=== PATIENT | male | born 1960 | race Caucasian/White ===

== ENCOUNTER 2025-06-18 14:10 | Outpatient (AMB) | payer MEDICARE, SELFPAY ==
--- NOTE | 2025-06-18 14:41 | MHC.PC.OV ---
Vital Signs 06/18/25 14:47 06/18/25 14:53 Height 5 ft 10 in Weight 168 lb 6 oz BMI 24.2 BP 146/86 H 140/84 H Blood Pressure Location Rt brachial Rt radial Position Sitting Sitting Respiration 12 Pulse 78 Pulse Source Pulse Oximeter Temp 98.1 F Temp Source Oral Pulse Oximetry (%) 99 Oxygen Delivery Method Room Air Intake Visit Reasons: SAP ARCHITECT CPE/Cardio issues Intake Note: New patient visit [facility] General Manager Required: No Allergies No Known Allergies Allergy (Verified 06/18/25 14:41) Medication List - Last Reconciled 06/18/25 by Romy Vásquez PA-C fexofenadine-pseudoephedrine 60-120 mg ER (Divya-D 12 Hour) 1 tab PO Q12H PRN simvastatin 20 mg PO DAILY Tobacco use date assessed: 06/18/25 Fall risk assessment: No Falls in past year Last assessed Fall Risk: 06/18/25 Dental Screening Dental Screen Date: 06/18/25 Did you have a dental visit in the last 12 months?: No Did you have a dental problem in the last 6 months where you did not have access to dental care?: No Was dental information given to patient?: Patient declined HPI SAP ARCHITECT CPE/Cardio issues HPI Details Pt is a 64 y/o male who presents today to establish care. He has not seen anyone since 2019. He has hx of HLD. CV: has not been on simvastatin 20 mg in the last few years or so. He states that he had a stash of some leftover pills so for the last couple weeks has started taking simvastatin 20 mg again. He states that he started taking this because he has been experiencing chest pain, shortness on breath, racing heartbeat and just feeling unwell in his chest. He states that his symptoms started in February and he was getting intermittent chest pain that changes in quality. He states that it can feel like a tightness, dull, sharp, vibration etc.. He does often times get associated shortness on breath and dizziness with it. He has a few times experience a racing heartbeat that sometimes has associated chest tightness. He is worried that he could have AFib. A few times he has had a racing heartbeat that he has woken up with or chest pain that is woken him up from sleep. Sometimes it is exertional and sometimes it is while he is just sitting there. He states what he really noticed as concerning is walking up a couple steps on a ladder causes him to experience shortness on breath and dizziness with chest pain. He has had to stop going up a flight of stairs numerous times. He states that this is very unlike him. He did actually have an episode of syncope where he had these symptoms and then fell and hit his bathroom floor. He did not seek emergent medical care. He states that he does have a family history of MIs. He states most of his family members have from massive heart attacks. He states that he has tried to treat this with aspirin which he thinks sometimes makes the pain better but it takes a long time. He has been taking a daily aspirin. Blood pressure is elevated today in the office and he states it is similar to how it was a few years ago. Derm: right shoulder lesion present for years. states it grows, scabs over, and does not go away. wonders if it could be skin cancer. Colonoscopy: 2017, had polpys. overdue. 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 1. Little interest or pleasure in doing things: several days 2. Feeling down, depressed, or hopeless: not at all 3. Trouble falling or staying asleep, or sleeping too much: not at all 4. Feeling tired or having little energy: several days 5. Poor appetite or overeating: not at all 6. Feeling bad about yourself - or that you are a failure or have let yourself or your family down: not at all 7. Trouble concentrating on things, such as reading the newspaper or watching television: several days 8. Moving or speaking so slowly that other people could have noticed. Or the opposite - being so fidgety or restless that you have been moving around a lot more than usual: not at all 9. Thoughts that you would be better off or of hurting yourself in some way: not at all Total score: 3 Depression Screening Interpretation: Negative Depression Screening Done: Yes 59339 - PHQ-9 Billing: Yes Source: Developed by Drs. Sánchez Jules, Sherlyn Rhodes, Romaine Hu and colleagues, with an educational britt from [employer]. Thrive Questionnaire Date Thrive assessed: 06/16/25 I am a: Patient What is your living situation today?: I have a steady place to live Within the past 12 months, did the food you bought not last and you didn't have the money to get more?: Never true Within the past 12 months, did you worry whether your food would run out before you got money to buy more?: Never true Do you have trouble paying for medicines?: No Do you have trouble getting transportation to medical appointments?: No Do you have trouble paying your heating and electricity bill?: No Do you have trouble taking care of your child, family member or friend?: No Do you have trouble with day-to-day activities such as bathing, preparing meals, shopping, managing finances, etc.?: No Are you currently unemployed and looking for a job?: No Are you interested in more education?: No Please select the resources that you would like help with: None Currently or been in a relationship where the following occur: No concerns reported THRIVE Score: 0 AUDIT C Alcohol Use Questionnaire (AUDIT-C) 1. How often do you have a drink containing alcohol?: 4 or more times a week 2. How many drinks containing alcohol do you have on a typical day when you are drinking?: 3 or 4 3. How often do you have six or more drinks on one occasion?: Monthly Total Score: 7 PAYAM-7 AMB Questionnaire PAYAM-7 Feeling nervous, anxious, or on edge: 1 = Several days Not being able to stop or control worryin = Several days Worrying too much about different things: 1 = Several days Trouble relaxin = Several days Being so restless that it is hard to sit still: 0 = Not at all Becoming easily annoyed or irritable: 0 = Not at all Feeling afraid as if something awful might happen: 1 = Several days Total PAYAM-7 score (0-4 normal; 5-9 mild; 10-14 moderate; 15-21 severe): 5 Source: Developed by Drs. Sánchez LSherlyn Diaz Kurt Kroenke and colleagues, with an educational britt from [employer]. PAYAM-7 Assessment Billing PAYAM-7 Assessment Tool: PAYAM-7 Assessment 88045 Physical exam (Primary Care) Vital Signs: Last Vital Signs Temp 98.1 F 06/18/25 14:47 Pulse 78 06/18/25 14:47 Resp 12 06/18/25 14:47 BP 146/86 H 06/18/25 14:47 Pulse Ox 99 06/18/25 14:47 Oxygen Delivery Method Room Air 06/18/25 14:47 BMI result Body Mass Index 24.2 Tobacco/Smoking Status: Tobacco use Status Tobacco use date assessed 06/18/25 06/18/25 14:50 e-Cigarette/Vaping Use Never Used 06/18/25 14:50 PHQ-9: PHQ-9 Score PHQ-9: Total score 3 06/18/25 14:43 Depression Screening Interpretation: Negative Thrive Assessment: Date of Thrive Assessment Date Thrive assessed 06/16/25 06/18/25 14:43 Currently or been in a relationship where the following occur: No concerns reported Const Orientation/consciousness: patient oriented x3 HENMT Ears: hearing grossly normal bilaterally Neck Thyroid: Thyroid normal Lymphatic: no lymphadenopathy noted Resp Auscultation: clear to auscultation bilaterally Cardio Rate: regular rate Rhythm: regular rhythm Heart sounds: S1 normal heart sound present and S2 normal heart sound present GI Inspection: Yes normal to inspection Palpation (GI): Soft to palpation and Other GI palpation findings present (nontender, no cva tenderness) Auscultation: normoactive bowel sounds Rectal Exam - Male: Yes deferred Skin General skin exam: no rashes or lesions noted Neuro General: patient oriented x3, gait normal and no focal motor deficits Office Procedures EKG Details: EKG today in office is normal sinus rhythm at a rate of 73 beats per minute with nonspecific STT wave abnormalities. No prior study to compare. EKG interpreted myself and Dr. Wong. [id number], Complete Coding Level of Care Code New Pt Level 5 (46739) Complex EM visit Add On G2211 Diagnoses Colon polyps K63.5 Skin lesion of right arm L98.9 Chest pain R07.9 Racing heart beat R00.0 Elevated blood pressure reading in office without diagnosis of hypertension R03.0 Syncope R55 Fam hx-ischem heart disease Z82.49 CPT Codes EKG - CPT: 65297-Nsefrpsuqkyvhnohu, Complete ([id number]) Additional Codes PHQ-9 - 22057 - PHQ-9 Billing: Yes ([id number]) PAYAM-7 Assessment Billing - PAYAM-7 Assessment Tool: PAYAM-7 Assessment [id number] ([id number]) Assessment & Plan Assessment & Plan (1) Colon polyps: Code(s): K63.5 - Polyp of colon Category: Medical Plan: referral back to Dr. Newman. (2) Skin lesion of right arm: Code(s): L98.9 - Disorder of the skin and subcutaneous tissue, unspecified Category: Medical Plan: referral to derm. Lazar. (3) Chest pain: Code(s): R07.9 - Chest pain, unspecified Category: Medical Plan: EKG today in the office Chest x-ray ordered Stress test ordered Echo ordered Holter ordered Labs ordered Referral to Cardiology. We will start metoprolol. Discussed risks and benefits and adverse effects of this medication. I have reordered the simvastatin.-lipids and LFTs ordered although suspect that the lipids are not well-controlled as he has only been on the simvastatin for a couple weeks with a very out dated prescription Advised to continue with a daily baby aspirin Warning signs of chest pain that would require emergent medical treatment were discussed (4) Racing heart beat: Code(s): R00.0 - Tachycardia, unspecified Category: Medical Plan: As above (5) Elevated blood pressure reading in office without diagnosis of hypertension: Code(s): R03.0 - Elevated blood-pressure reading, without diagnosis of hypertension Category: Medical Plan: Metoprolol ordered (6) Syncope: Code(s): R55 - Syncope and collapse Category: Medical Plan: As above. Carotid ultrasound also ordered (7) Fam hx-ischem heart disease: Code(s): Z82.49 - Family history of ischemic heart disease and other diseases of the circulatory system Category: Medical Plan: As above Plan 75 minutes spent today in direct patient care, chart review, coordination of care, note dictation. Orders: Orders Complete Blood Count Auto Diff Today R00.0 - Tachycardia, unspecified, R03.0 - Elevated blood-pressure reading, without diagnosis of hypertension, R07.9 - Chest pain, unspecified, R55 - Syncope and collapse TSH reflex Free T4 Today R00.0 - Tachycardia, unspecified, R03.0 - Elevated blood-pressure reading, without diagnosis of hypertension, R07.9 - Chest pain, unspecified, R55 - Syncope and collapse Prostate Specific Antigen Scr Today R00.0 - Tachycardia, unspecified, R03.0 - Elevated blood-pressure reading, without diagnosis of hypertension, R07.9 - Chest pain, unspecified, R55 - Syncope and collapse, Z01.89 - Encounter for other specified special examinations CA echo transthoracic complete Today R00.0 - Tachycardia, unspecified, R03.0 - Elevated blood-pressure reading, without diagnosis of hypertension, R07.9 - Chest pain, unspecified, R55 - Syncope and collapse US carotid duplex BI Today R00.0 - Tachycardia, unspecified, R00.2 - Palpitations, R03.0 - Elevated blood-pressure reading, without diagnosis of hypertension, R07.9 - Chest pain, unspecified, R55 - Syncope and collapse AMB EKG-In Office Today R00.0 - Tachycardia, unspecified, R03.0 - Elevated blood-pressure reading, without diagnosis of hypertension, R07.9 - Chest pain, unspecified Comprehensive [place]. Panel Fast Today R00.0 - Tachycardia, unspecified, R03.0 - Elevated blood-pressure reading, without diagnosis of hypertension, R07.9 - Chest pain, unspecified, R55 - Syncope and collapse Hemoglobin A1c Today R00.0 - Tachycardia, unspecified, R03.0 - Elevated blood-pressure reading, without diagnosis of hypertension, R07.9 - Chest pain, unspecified, R55 - Syncope and collapse, R73.01 - Impaired fasting glucose Lipid Panel Today R00.0 - Tachycardia, unspecified, R03.0 - Elevated blood-pressure reading, without diagnosis of hypertension, R07.9 - Chest pain, unspecified, R55 - Syncope and collapse Microalbumin, Random (w Creat) Today R00.0 - Tachycardia, unspecified, R03.0 - Elevated blood-pressure reading, without diagnosis of hypertension, R07.9 - Chest pain, unspecified, R55 - Syncope and collapse UA CC w/rflx Micro + Cult Today R00.0 - Tachycardia, unspecified, R03.0 - Elevated blood-pressure reading, without diagnosis of hypertension, R07.9 - Chest pain, unspecified, R30.0 - Dysuria, R55 - Syncope and collapse CA stress test Today R00.0 - Tachycardia, unspecified, R03.0 - Elevated blood-pressure reading, without diagnosis of hypertension, R07.9 - Chest pain, unspecified, R55 - Syncope and collapse ECG holter monitor 24 hour Today R00.0 - Tachycardia, unspecified, R03.0 - Elevated blood-pressure reading, without diagnosis of hypertension, R07.9 - Chest pain, unspecified, R55 - Syncope and collapse XR chest 2V Today R00.0 - Tachycardia, unspecified, R03.0 - Elevated blood-pressure reading, without diagnosis of hypertension, R07.9 - Chest pain, unspecified, R55 - Syncope and collapse Referrals Gastroenterology Referral K63.5 - Polyp of colon, Z12.11 - Encounter for screening for malignant neoplasm of colon Cardiology Referral R00.0 - Tachycardia, unspecified, R03.0 - Elevated blood-pressure reading, without diagnosis of hypertension, R07.9 - Chest pain, unspecified, Z82.49 - Family history of ischemic heart disease and other diseases of the circulatory system Dermatology Referral L98.9 - Disorder of the skin and subcutaneous tissue, unspecified, Z12.83 - Encounter for screening for malignant neoplasm of skin Medications: New metoprolol succinate ER 25 mg PO DAILY 90 tabs 0RF simvastatin 20 mg PO DAILY 90 tabs 3RF
[2025-06-18 14:47] VITALS: BP 146/86; PULSE 78; RESP 12; TEMP 36.7; O2SAT 99; BMI 24.2
[2025-06-18 14:53] VITALS: BP 140/84
== END 2025-06-18 15:44 | disposition home or self-care (01) ==
LOC: HO.HMCFM 14:11
PROVIDERS: PCP Physician Assistant; Visit Provider Physician Assistant
DX: R07.9 Chest pain, unspecified (principal); K63.5 Polyp of colon; L98.9 Disorder of the skin and subcutaneous tissue, unspecified; R00.0 Tachycardia, unspecified; R03.0 Elevated blood-pressure reading, without diagnosis of hypertension; R55 Syncope and collapse; Z82.49 Family history of ischemic heart disease and other diseases of the circulatory system

== ENCOUNTER → 2025-06-18 14:10 | Outpatient (BNVA) | payer MEDICARE, SELFPAY | PROVIDERS: PCP Physician Assistant; Visit Provider Physician Assistant | DX: R03.0 Elevated blood-pressure reading, without diagnosis of hypertension (principal); L98.9 Disorder of the skin and subcutaneous tissue, unspecified; R07.9 Chest pain, unspecified; R00.0 Tachycardia, unspecified; R55 Syncope and collapse; Z82.49 Family history of ischemic heart disease and other diseases of the circulatory system; Z86.0100 Personal history of colon polyps, unspecified | CPT/HCPCS: 93005; 96127; 99202 ==

== ENCOUNTER 2025-06-19 07:34 | Outpatient (REF) | payer MEDICARE, SELFPAY ==
[2025-06-19 11:02] LABS: MANUAL DIFF FLAG NO
[2025-06-19 11:04] LABS: Hematocrit 44.4 % (42.0-52.0); Hemoglobin 15.4 g/dl (14.0-18.0); Imm Gran Abs Auto 0.02 X10*3/uL (0.00-0.03); Imm Gran Pct Auto 0.3 % (0.0-0.4); Lymphocytes Absolute Auto 1.8 X10*3/uL (1.2-4.9); Mean Corpuscular HGB Conc 34.7 g/dl (31.0-36.0); Mean Corpuscular Hemoglobin 31.4 pg (27.0-33.0); Mean Corpuscular Volume 90.6 fL (80.0-98.0); NRBC Abs Auto 0.000 X10*3/uL (0.0-0.012); NRBC Pct Auto 0.0 /100WBC (0.0-0.2); Platelet Count 205 X10*3/uL (160-400); Red Blood Count 4.90 X10*6/uL (4.60-5.80); White Blood Count 6.3 X10*3/uL (4.8-10.8)
[2025-06-19 11:11] LABS: Appearance Urine Clear; Glucose Urine UA Negative (Negative); PH 7.0 (5.0-9.0); Specific Gravity - Urine 1.020 (1.005-1.025); UMIC TRIGGER UACC YES
[2025-06-19 11:48] LABS: Alanine Aminotransferase 45 U/L (0-40); Albumin Level 4.2 g/dL (3.5-5.0); Alkaline Phosphatase 72 U/L (39-117); Anion Gap 12 (12-20); Aspartate Amino Transferase 42 U/L (5-37); Blood Urea Nitrogen 13 mg/dL (9-16); Calcium 9.6 mg/dL (8.4-10.2); Carbon Dioxide 28 mmol/L (22-29); Chloride 105 mmol/L (96-108); Cholesterol 157 mg/dL (<200); Estimated Glomerular Filt Rate > 60; HDL Cholesterol 50 mg/dL (>40); Potassium 4.9 mmol/L (3.3-5.1); Sodium 140 mmol/L (135-145); Total Protein 6.5 g/dL (6.5-8.0); Triglycerides 67 mg/dL (<150)
[2025-06-19 11:54] LABS: Hemoglobin A1C 158.9785 umol/L; Total Hemoglobin (HGBA1C) 4679.0597 umol/L
[2025-06-19 11:58] LABS: Microalbum/Creatinine Ratio Ur 3.5 ug/mg cr (<30)
== END 2025-06-19 07:35 | disposition home or self-care (01) ==
LOC: HO.WFDLDS 07:34
PROVIDERS: Visit Provider Physician Assistant
DX: Z12.5 Encounter for screening for malignant neoplasm of prostate (principal); Z01.89 Encounter for other specified special examinations; R03.0 Elevated blood-pressure reading, without diagnosis of hypertension; R07.9 Chest pain, unspecified; R00.0 Tachycardia, unspecified; R55 Syncope and collapse; R73.01 Impaired fasting glucose
CPT/HCPCS: 36415; 80053; 80061; 81001; 82043; 82570; 83036; 84153; 84443; 85025

== ENCOUNTER 2025-07-09 15:15 | Outpatient (AMB) | payer MEDICARE, SELFPAY ==
--- NOTE | 2025-07-09 15:20 | MHC.PC.OV ---
Vital Signs 07/09/25 15:23 Height 5 ft 10 in Weight 165 lb 2 oz BMI 23.7 BP 138/82 Blood Pressure Location Lt brachial Position Sitting Respiration 14 Pulse 77 Pulse Source Pulse Oximeter Temp 98.3 F Temp Source Oral Pulse Oximetry (%) 98 Oxygen Delivery Method Room Air Intake Visit Reasons: bp and lab check Intake Note: Follow up. Tested positive yesterday for covid. Sxs started Sunday. fatigue, body aches, cough, fever, dizzy. Feeling better today Pathology Technician Required: No Allergies No Known Allergies Allergy (Verified 07/09/25 15:22) Medication List - Last Reconciled 07/09/25 by Romy Vásquez PA-C fexofenadine-pseudoephedrine 60-120 mg ER (Divya-D 12 Hour) 1 tab PO Q12H PRN metoprolol succinate ER 25 mg PO DAILY simvastatin 20 mg PO DAILY Tobacco use date assessed: 07/09/25 Fall risk assessment: No Falls in past year Last assessed Fall Risk: 07/09/25 Dental Screening Dental Screen Date: 06/18/25 HPI bp and lab check HPI Details Pt is a 64 y/o male who presents today for a follow up. He has not seen anyone since 2019. He has hx of HLD. He started to feel sick Sunday night. He started getting some dizziness, sore throat, cough, body aches, fever and chills. His sx are gradually improving. He states today he is better. He states that his COVID tests came back positive yesterday. He denies any wheezing or shortness on breath. CV: bp today is 138/82. He is booked for stress test, echo and holter later this month. He has started aspirin but not metoprolol. He is taking simvastatin. He states that the pharmacy did not yet send him the metoprolol. He states that over this last week he has not notice as much chest pain. Derm: Booked with Dermatology in a couple of months. Colonoscopy: 2017, had polrodrigo. overdue. booked 09.03.25. 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 Current occupational exposures/hazards: No Cognitive needs: No Hearing needs: No Vision needs: Yes (glasses.) Questionnaire Thrive Questionnaire Date Thrive assessed: 06/16/25 I am a: Patient What is your living situation today?: I have a steady place to live Within the past 12 months, did the food you bought not last and you didn't have the money to get more?: Never true Within the past 12 months, did you worry whether your food would run out before you got money to buy more?: Never true Do you have trouble paying for medicines?: No Do you have trouble getting transportation to medical appointments?: No Do you have trouble paying your heating and electricity bill?: No Do you have trouble taking care of your child, family member or friend?: No Do you have trouble with day-to-day activities such as bathing, preparing meals, shopping, managing finances, etc.?: No Are you currently unemployed and looking for a job?: No Are you interested in more education?: No Please select the resources that you would like help with: None Currently or been in a relationship where the following occur: No concerns reported THRIVE Score: 0 AUDIT C Alcohol Use Questionnaire (AUDIT-C) 1. How often do you have a drink containing alcohol?: 4 or more times a week 2. How many drinks containing alcohol do you have on a typical day when you are drinking?: 1 or 2 3. How often do you have six or more drinks on one occasion?: Never Total Score: 4 Physical exam (Primary Care) Vital Signs: Last Vital Signs Temp 98.3 F 07/09/25 15:23 Pulse 77 07/09/25 15:23 Resp 14 07/09/25 15:23 BP 138/82 07/09/25 15:23 Pulse Ox 98 07/09/25 15:23 Oxygen Delivery Method Room Air 07/09/25 15:23 BMI result Body Mass Index 23.7 Tobacco/Smoking Status: Tobacco use Status Tobacco use date assessed 07/09/25 07/09/25 15:28 Patient Tobacco Use Status Never used Tobacco 07/09/25 15:28 e-Cigarette/Vaping Use Never Used 07/09/25 15:28 Thrive Assessment: Date of Thrive Assessment Date Thrive assessed 06/16/25 07/09/25 15:28 Currently or been in a relationship where the following occur: No concerns reported Const Orientation/consciousness: patient oriented x3 HENMT Ears: hearing grossly normal bilaterally Neck Thyroid: Thyroid normal Lymphatic: no lymphadenopathy noted Resp Auscultation: clear to auscultation bilaterally Cardio Rate: regular rate Rhythm: regular rhythm Heart sounds: S1 normal heart sound present and S2 normal heart sound present GI Inspection: Yes normal to inspection Palpation (GI): Soft to palpation and Other GI palpation findings present (nontender, no cva tenderness) Auscultation: normoactive bowel sounds Rectal Exam - Male: Yes deferred Skin General skin exam: no rashes or lesions noted Neuro General: patient oriented x3, gait normal and no focal motor deficits Coding Level of Care Code Est Pt Level 4 (68165) Complex EM visit Add On G2211 Diagnoses Elevated blood pressure reading in office without diagnosis of hypertension R03.0 Elevated LFTs R79.89 COVID U07.1 Assessment & Plan Assessment & Plan (1) Elevated blood pressure reading in office without diagnosis of hypertension: Code(s): R03.0 - Elevated blood-pressure reading, without diagnosis of hypertension Category: Medical Plan: Start metoprolol. Return for follow up in a couple of months. We will follow up pending cardiac testing. He will follow up sooner if anything worsens or changes or go to the ED (2) Elevated LFTs: Code(s): R79.89 - Other specified abnormal findings of blood chemistry Category: Medical Plan: Last labs showed elevated LFTs. He will recheck these. (3) COVID: Code(s): U07.1 - COVID-19 Plan: Symptoms are improving/resolved. Continue monitoring. Medications: Refilled metoprolol succinate ER 25 mg PO DAILY 90 tabs 3RF metoprolol succinate ER 25 mg PO DAILY 90 tabs 0RF
[2025-07-09 15:23] VITALS: BP 138/82; PULSE 77; RESP 14; TEMP 36.8; O2SAT 98; BMI 23.7
== END 2025-07-09 15:45 | disposition home or self-care (01) ==
LOC: HO.HMCFM 15:16
PROVIDERS: PCP Physician Assistant; Visit Provider Physician Assistant
DX: R03.0 Elevated blood-pressure reading, without diagnosis of hypertension (principal); R79.89 Other specified abnormal findings of blood chemistry; U07.1 COVID-19

== ENCOUNTER → 2025-07-09 15:15 | Outpatient (BNVA) | payer MEDICARE, SELFPAY | PROVIDERS: PCP Physician Assistant; Visit Provider Physician Assistant | DX: R03.0 Elevated blood-pressure reading, without diagnosis of hypertension (principal); R79.89 Other specified abnormal findings of blood chemistry; U07.1 COVID-19; Z79.82 Long term (current) use of aspirin; Z79.899 Other long term (current) drug therapy | CPT/HCPCS: 99212 ==

== ENCOUNTER → 2025-07-27 08:52 | Outpatient (REF) | payer MEDICARE, SELFPAY ==
--- NOTE | 2025-07-27 08:54 | CA_ITS ---
Transthoracic Echocardiogram Patient (Last, First, Middle): Sánchez Zaidi Jr, Gender: M Date of : 1960 Age: 64 Procedure Date: 07/27/2025 Procedure Type: Transthoracic Echocardiogram Location: OP Height: 177. cm Weight: 79.38 kg BSA: 1.97 m2 Heart Rate: 76 bpm BP: 138 / 65 mmHg Program Manufacturing Leader: LUKE Referring MD: Romy Vásquez PA-C Symptoms: R03.0 - Elevated blood-pressure reading, without diagnosis of hypertension Study Quality: Adequate ECG Rhythm: Sinus Conclusions: - The left ventricular systolic function is normal. The calculated ejection fraction is 67% by biplane method. - No obvious valvular pathology seen on this study. - Top normal ascending aortic size at 3.7 cm. Findings Left Ventricle Normal left ventricular cavity size. There is mildly increased left ventricular wall thickness. The left ventricular systolic function is normal. The calculated ejection fraction is 67% by biplane method. There is no evidence of regional wall motion abnormalities. Diastolic function is normal for age. Mild focal hypertrophy of the basal septum. Right Ventricle Mildly increased right ventricular cavity size. There is normal right ventricular systolic function. Atria Both atria are normal in size. Aortic Valve There is a normal trileaflet aortic valve. There is mild calcification of the aortic valve. There is no aortic valve stenosis. There is no aortic valve regurgitation. Mitral Valve There is mild mitral annular calcification. There is no mitral valve regurgitation. There is no mitral valve stenosis. Pulmonic Valve The pulmonic valve is likely normal. Tricuspid Valve There is trace tricuspid valve regurgitation. There is no evidence of pulmonary hypertension. Great Vessels The aortic arch is normal in size. Top normal ascending aortic size at 3.7 cm. Venous The inferior vena cava is mildly dilated and collapses greater than 50% with inspiration. Pericardium/Pleural There is no evidence of pericardial effusion. Prior Study Comparison No prior study available for comparison. Recommendations, Care & Conclusions No obvious valvular pathology seen on this study. Measurements 2D Linear Measurements IVSd: 1.13 0.6-0.9/0.6-1.0 cm LVIDd: 3.55 3.9-5.3/4.2-5.9 cm LVIDd Index: 1.80 2.4-3.2/2.2-3.1 cm/m2 LVIDs: 1.90 2.0-3.6 cm LVPWd: 1.10 0.7-1.1 cm LA Diam: 3.10 2.7-3.8/3.0-4.0 cm LAIDs Index: 1.57 1.5-2.3 cm/m2 LV Mass: 154.30 67-162/88-224 g LV Mass Index: 78.32 43-95/49-115 g/m2 LVOT Diam: 2.20 3.0+(-)1.3 cm 2D Systolic Function EF 4C: 62.90 >55% EF 2C: 70.30 >55% EF BiP: 67.40 >55% Mitral Valve MV Pk E: 0.91 MV PK A: 0.84 MV Decel Time: 226.00 E/A: 1.10 E'Lateral: 9.57 E'Medial: 7.83 E/E' Med: 11.70 E/E' Lat: 9.50 PHT: 66.00 MVA PHT: 3.33 Decel Warren: 4.05 Aortic Valve AoV Pk Artemio: 1.07 AoV Mn Artemio: 0.81 AoV VTI: 0.25 AoV Pk Grad: 5.00 Aov Mn Grad: 3.00 EUGENIO Cont.VTI: 3.75 LVOT LVOT Pk Artemio: 1.00 LVOT Mn Artemio: 0.77 LVOT VTI: 0.25 LVOT Pk Grad: 4.00 LVOT Mn Grad: 3.00 LVOT Diam: 2.20 LVOT Area: 3.80 Diastolic Function MV Pk E: 0.91 MV Pk A: 0.84 E/A: 1.10 E'Medial: 7.83 E/E' Med: 11.70 E' Laterial: 9.57 E/E' Lat: 9.50 Right Ventricle TAPSE (mm): 27.80 TVS' Artemio: 14.80 Tricuspid Valve TR Pk Artemio: 1.82 TR Pk Grad: 13.00 RA Press: 8.00 RVSP: 21.00 Great Vessels Aorta Sinus of Valsalva: 3.60 2.0-3.5 cm Ao Asc: 3.70 2.1-3.4 cm Ao Arch: 3.20 Pulmonary Veins Pulm Vein S/D 1.70 Pulmonary Valve PV Pk Artemio: 1.05 Peak PV Grad: 4.00 Updated in Other Vendor System with Status of Final Shaji Arevalo MD electronically signed on 07/27/2025 12:47:51 PM with status of Final
--- NOTE | 2025-07-27 08:54 | HM_ITS ---
Conclusion: 1. Baseline was normal sinus rhythm with average heart of 77 beats per minute 2. Occasional PACs noted with total burden of 0.72% without significant tachyarrhythmias 3. No significant pauses noted 4. Patient marked the counter 1 time correlating with sinus rhythm MTDD
--- NOTE | 2025-07-27 08:54 | CA_ITS ---
Acquisition Time: 2025-07-27 10:03:14 Total Exercise Time: 00:04:56 Test Indications: cp Medications: see h&p Protocol: LAYA Max HR: 153 BPM 99% of Pred: 154 BPM Max BP: 194/70 mmHG Max Work Load: 6.9 METS Exercise stress test with exercise 4 min 56 sec of Laya protocol, achieving 97% MPHR, with mild shortness of breath, no chest discomfort, report of heart skipping , with normotensive reponse to exercise, with EKG changes meeting criteria for ischemia, 1.5-2mm horiozontal to slightly upsloping ST depression inferolateral leads, ST elevation aVR with gradual improvement in recovery. Test reviewed with Dr Arevalo. Exercise nuclear stress test ordered for further evaluation. Referred By: Romy Vásquez Electronically Signed By: GABRIEL CEDILLO
--- OUTSIDE RECORDS SUMMARY | 2025-07-27 09:20 | XMS_ITS | Clinical Summary ---
Author Organization 175 [facility] Address [address] [place] [address] Phone Care Team Providers Care Lamination Builder Name Role Phone Romy Vásquez Primary Care Provider [phone] Allergies No known active allergies Medications fexofenadine-pse udoephedrine (ROBERTO-D) 60-120 mg per 12 hr tablet Take 1 tablet by mouth 2 (two) times a day. Do not crush, chew, or split. Active Encounters Date Type Department Care Team Description 06/19/2025 Telephone Gastroenterology - [place] [address] [address] Cristine Newman MD from Last 3 Months Social History Tobacco Use Types Packs/Day Years Used Date Smoking Tobacco: Never Assessed Sex and Gender Information Value Date Recorded Sex Assigned at Not on file Legal Sex Male 7:26 AM EST Gender Identity Not on file Sexual Orientation Not on file Plan of Treatment Upcoming Encounters Date Type Department Care Team (Late Contact Info) Description 09/03/2025 11:00 AM EST Appointment [facility] [address] [place] [address] Cristine Newman MD [address] [id number] Health Maintenance Due Date Last Done Comments Colorectal Cancer Screening: Colonoscopy 1960 DTaP,Tdap,and Td Vaccines (1 - Tdap) 1977 Pneumococcal Vaccine: 50+ Ye ars (1 of 1 - PCV) 2008 Zoster Vaccines (1 of 2) 2008 Depression Screening 10/29/2024 Abdominal Aortic Aneurysm (A AA) Screen 06/19/2025 Cholesterol Screening (Lipid Panel) 06/19/2025 Falls Risk Assessment 06/19/2025 Hepatitis C Screening 06/19/2025 Medicare Annual Wellness Visit 06/19/2025 Social Influencers of Health Screening 06/19/2025 COVID-19 Vaccine (1 - 2023-2 5 season) 2025 Influenza Vaccine (#1) 2025 RSV Immunization Adult Patie nts (1 - 1-dose 75+ series) 2033 HIB Vaccines Aged Out No longer eligi ble based on patient's age to complete this topic HPV Vaccines Aged Out No longer eligi ble based on patient's age to complete this topic Hepatitis A Vaccines Aged Out No long er eligible based on patient's age to complete this topic Hepatitis B Vaccines Aged Out No long er eligible based on patient's age to complete this topic IPV Vaccines Aged Out No longer eligi ble based on patient's age to complete this topic MMR Vaccines Aged Out No longer eligi ble based on patient's age to complete this topic Meningococcal ACWY Vaccine Aged Out N o longer eligible based on patient's age to complete this topic Meningococcal B Vaccine Aged Out No l onger eligible based on patient's age to complete this topic RSV Immunization Patients Un cliff 20 months Aged Out No longer eligible b ased on patient's age to complete this topic Varicella Vaccines Aged Out No longer eligible based on patient's age to complete [place] [address] BL[place] Care Teams Lamination Builder Relationship Specialty Start Date End Date Romy Vásquez PA [address] [place] [address] PCP - General Physician Time Study Technician 06/19/25
== END ==
LOC: HO.CARD 08:52
PROVIDERS: PCP Physician Assistant; Visit Provider Physician Assistant
DX: R03.0 Elevated blood-pressure reading, without diagnosis of hypertension (principal); R07.9 Chest pain, unspecified; R00.0 Tachycardia, unspecified; R55 Syncope and collapse
CPT/HCPCS: 93017; 93225; 93306

== ENCOUNTER → 2025-07-27 08:54 | Outpatient (BNV) | payer MEDICARE, SELFPAY | PROVIDERS: PCP Physician Assistant; Visit Provider Nurse Practitioner Family | DX: I42.2 Other hypertrophic cardiomyopathy (principal); I35.8 Other nonrheumatic aortic valve disorders; I34.81 Nonrheumatic mitral (valve) annulus calcification; R06.02 Shortness of breath; R03.0 Elevated blood-pressure reading, without diagnosis of hypertension | CPT/HCPCS: 93016; 93018; 93306 ==

== ENCOUNTER 2025-07-29 13:08 | Outpatient (AMB) | payer MEDICARE, SELFPAY ==
[2025-07-29 13:21] VITALS: BP 140/68; PULSE 60; BMI 23.4
--- NOTE | 2025-07-29 13:21 | MHC.OFFVIS ---
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 The chest pain began in February and is described as sharp and sometimes dull, occurring intermittently and not consistently related to physical activity. The patient reports episodes of palpitations, dizziness, and shortness of breath, which have been occurring over the past three years. The patient has been taking a beta monica for the past week, which has reduced the frequency and severity of chest pain by approximately 85%. A recent stress test was abnormal, indicating the need for further investigation into potential blockages. The patient has a history of inconsistent symptoms, with some episodes of chest pain and shortness of breath occurring without exertion, while others are associated with physical activity. He has also noted that symptoms sometimes improve with allergy medication, suggesting a possible link to environmental factors. 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 Current occupational exposures/hazards: No Cognitive needs: No Hearing needs: No Vision needs: Yes (glasses.) Review of Systems Const Denies weakness ENT Reports dizziness Card Reports chest pain, Reports chest pain at rest, Reports chest pain with activity, Denies syncope, Denies rapid heart rate, Denies pedal edema, Denies edema, Denies leg edema, Denies lightheadedness, Reports palpitations, Reports dyspnea, Denies dyspnea on exertion and Denies orthopnea Resp Denies cough, Reports dyspnea and Denies dyspnea on exertion GI Denies hematochezia and Denies change in stool character Musc Denies abnormal gait, Denies muscle cramps, Denies muscle weakness, Denies numbness, Denies radiating pain into limb and Denies tingling Neuro Denies abnormal gait, Reports dizziness, Denies syncope, Denies numbness, Denies tingling and Denies weakness Endo Reports palpitations Physical Exam Vital Signs: Last Vital Signs Pulse 60 07/29/25 13:21 BP 140/68 H 07/29/25 13:21 BMI result Body Mass Index 23.4 Const General: comfortable and no acute distress Orientation/consciousness: patient oriented x3 HEENT Other: Unremarkable Head: Yes normal to inspection Neck Neck: Yes normal visual inspection Chest Chest palpation & inspection: normal inspection of the chest Resp Auscultation: clear to auscultation bilaterally Cardio Palpation: normal PMI Heart sounds: S1 normal heart sound present, S2 normal heart sound present, no gallops, no murmurs and no rubs GI Palpation (GI): Soft to palpation Back/Spine/Pelvis Other: unremarkable Skin General skin exam: no rashes or lesions noted Neuro General: patient oriented x3 Extrem General: Yes normal to inspection Psych Mental Status: mental status grossly normal Assessment & Plan Assessment & Plan (1) Chest pain: Code(s): R07.9 - Chest pain, unspecified Category: Medical (2) SOB (shortness of breath): Code(s): R06.02 - Shortness of breath Category: Medical (3) Heart palpitations: Code(s): R00.2 - Palpitations Category: Medical Plan Baseline EKG with underlying sinus rhythm at 73/Min; no ischemic changes and otherwise unremarkable. In the echocardiogram, LVEF is 67%. No significant wall motion abnormalities or valvular findings. Top normal ascending aortic size at 3.7 cm. In the stress test, he was able to exercise for 6.9 METS on True protocol and reached target heart rate. He had shortness of breath but no angina. Normal blood pressure response. He had clear EKG evidence of ischemia with a ST-depression as well as some ST elevation in the AVR. Gradually improved in recovery. Overall, his symptoms are somewhat atypical and as the symptoms can happen during rest and physical activity and also he describes symptoms which are atypical for coronary disease like dizziness and palpitations. We discussed plans for further care. As the stress test itself was quite abnormal, recommended diagnostic catheterization for further evaluation. We discussed about procedure itself and he understands and agrees with that. We will schedule this for as soon as possible. In the interim, if any worsening symptoms, he should seek emergency care. With regard to medications, may stay on the current regimen of aspirin, beta-blockers and statins. With regard to the palpitations, it seems he had a 24 hour Holter monitor. Can review that once completed. He may need a longer term monitor like 2 week Holter versus 4 week Holter if the palpitations persist. Discussion Notes I discussed with the patient the need for an angiogram to evaluate potential coronary artery blockages due to abnormal stress test results. We reviewed the procedure, including the use of a catheter and potential stent placement if significant blockages are found. The patient was informed about the risks and benefits of the procedure, and consent was obtained. We also discussed the use of a beta monica, which has been effective in reducing chest pain and palpitations. The patient will be monitored with a heart monitor to further evaluate palpitations. Patient was informed and verbally consented to the use of an ambient scribe for clinic note documentation during this visit. Orders: Orders Cardiac Cath LT Diagnostic Today I25.10 - Atherosclerotic heart disease of [place] coronary artery without angina pectoris, R07.9 - Chest pain, unspecified Prothrombin Time INR Today I25.10 - Atherosclerotic heart disease of [place] coronary artery without angina pectoris, R07.9 - Chest pain, unspecified Basic Metabolic Panel Today I50.9 - Heart failure, unspecified, R07.9 - Chest pain, unspecified Patient Instructions: - Undergo angiogram as scheduled to assess for coronary artery blockages. - Continue taking beta monica as prescribed. - Report any worsening of symptoms such as increased chest pain or dizziness and see energency care as required. - Follow up for further evaluation and management. Coding Level of Care Code New Pt Level 5 (70894) Complex EM visit Add On G2211 Diagnoses Chest pain R07.9 SOB (shortness of breath) R06.02 Heart palpitations R00.2
--- OUTSIDE RECORDS SUMMARY | 2025-07-29 14:24 | XMS_ITS | Clinical Summary ---
Author Organization 175 [facility] Address [address] [place] [address] Phone Care Team Providers Care Factory Laborer Name Role Phone Romy Vásquez Primary Care Provider [phone] Allergies No known active allergies Medications fexofenadine-pse udoephedrine (ROBERTO-D) 60-120 mg per 12 hr tablet Take 1 tablet by mouth 2 (two) times a day. Do not crush, chew, or split. Active Encounters Date Type Department Care Team Description 06/19/2025 Telephone Gastroenterology - [place] [address] [address] Cristine Newman MD from Last [...] Info) Description 09/03/2025 11:00 AM EST Appointment [facility] [address] [place] [address] Cristine Newman MD [address] [address] Health Maintenance Due Date Last Done Comments [...] patient's age to complete [place] [address] [place] Care Teams Factory Laborer Relationship Specialty Start Date End Date Romy Vásquez PA [address] [place] [address] PCP - General Physician High School Music Instructor 06/19/25
== END 2025-07-29 14:27 | disposition home or self-care (01) ==
LOC: HO.HCS 13:09
PROVIDERS: PCP Physician Assistant; Visit Provider Internal Medicine
DX: R07.9 Chest pain, unspecified (principal); R06.02 Shortness of breath; R00.2 Palpitations
CPT/HCPCS: 99205; G2211

== ENCOUNTER 2025-07-29 13:08 | Outpatient (REF) | payer MEDICARE, SELFPAY ==
[2025-07-29 15:13] LABS: INTERNATIONAL NORM RATIO 1.0 (0.9-1.1); Prothrombin Time 11.8 SEC (10.9-12.4)
[2025-07-29 15:20] LABS: Appearance Urine Clear; Glucose Urine UA Negative (Negative); PH 7.0 (5.0-9.0); Specific Gravity - Urine <= 1.005 (1.005-1.025)
[2025-07-29 15:30] LABS: Alanine Aminotransferase 34 U/L (0-40); Albumin Level 4.6 g/dL (3.5-5.0); Alkaline Phosphatase 93 U/L (39-117); Anion Gap 10 (12-20); Aspartate Amino Transferase 30 U/L (5-37); Blood Urea Nitrogen 12 mg/dL (9-16); Calcium 9.8 mg/dL (8.4-10.2); Carbon Dioxide 31 mmol/L (22-29); Chloride 106 mmol/L (96-108); Estimated Glomerular Filt Rate > 60; Potassium 4.9 mmol/L (3.3-5.1); Sodium 142 mmol/L (135-145); Total Protein 7.4 g/dL (6.5-8.0)
== END 2025-07-29 13:09 | disposition home or self-care (01) ==
LOC: HO.LAB 13:08
PROVIDERS: Absent Provider Physician Assistant; PCP Physician Assistant; Visit Provider Internal Medicine
DX: I25.10 Atherosclerotic heart disease of native coronary artery without angina pectoris (principal); I50.9 Heart failure, unspecified; R00.2 Palpitations; R07.89 Other chest pain; R00.0 Tachycardia, unspecified; R55 Syncope and collapse; R79.89 Other specified abnormal findings of blood chemistry; R30.0 Dysuria; R03.0 Elevated blood-pressure reading, without diagnosis of hypertension; Z79.82 Long term (current) use of aspirin; Z79.899 Other long term (current) drug therapy
CPT/HCPCS: 36415; 80048; 80076; 81003; 85610; 99202

== ENCOUNTER → 2025-08-06 23:59 | Outpatient (BNV) | payer MEDICARE, SELFPAY | PROVIDERS: PCP Physician Assistant; Visit Provider Internal Medicine Cardiovascular Disease | DX: R94.39 Abnormal result of other cardiovascular function study (principal) | CPT/HCPCS: 93458; 99152 ==

== ENCOUNTER 2025-08-07 15:23 | Outpatient (REF) | payer MEDICARE, SELFPAY ==
--- NOTE | ~2025-08-07 | US_ITS ---
EXAMINATION: BILATERAL CAROTID ULTRASOUND WITH DOPPLER HISTORY: R00.2 - Palpitations COMPARISON: There are no prior studies available for comparison. TECHNIQUE: Real time and Color and Spectral doppler ultrasonography of the carotid and vertebral arteries was performed in multiple planes. FINDINGS: Small amount of plaque is noted on the right. No significant plaque is seen on the left. VERTEBRAL FLOW DIRECTION: Antegrade bilaterally. PEAK SYSTOLIC VELOCITIES (in cm/sec): RIGHT: CCA: Prox: 54 Dist: 47 ICA: Prox: 43 Mid: 64 Dist: 53 ICA/CCA Ratio: 0.80 ECA: 68 Peak ICA end diastolic velocity (EDV): 23 LEFT: CCA: Prox: 77 Dist: 62 ICA: Prox: 72 Mid: 75 Dist: 53 ICA/CCA Ratio: 0.94 ECA: 86 Peak ICA end diastolic velocity (EDV): 22 US/US carotid duplex BI IMPRESSION: Findings consistent with 0-49% stenosis of the right internal carotid artery. No significant stenosis is seen on the left. Electronically signed by: Sánchez Warren MD 08/07/2025 03:53 PM EDT
--- NOTE | ~2025-08-07 | XR_ITS ---
EXAMINATION: XR CHEST CLINICAL INFORMATION: R03.0 - Elevated blood-pressure reading, without diagnosis of hypertension COMPARISON: None available. TECHNIQUE: 2 views of the chest were obtained. FINDINGS: The cardiac and mediastinal contours are normal. The lungs are clear. No pleural effusion or pneumothorax. Degenerative changes of the spine. XR/XR chest 2V IMPRESSION: No evidence for acute disease in the chest. Electronically signed by: Luz Edge MD 08/07/2025 05:30 PM EDT
== END 2025-08-07 15:24 | disposition home or self-care (01) ==
LOC: HO.US 15:23
PROVIDERS: PCP Physician Assistant; Visit Provider Physician Assistant
DX: R00.2 Palpitations (principal); R03.0 Elevated blood-pressure reading, without diagnosis of hypertension; R07.9 Chest pain, unspecified; R00.0 Tachycardia, unspecified; R55 Syncope and collapse
CPT/HCPCS: 71046; 93880

== ENCOUNTER → 2025-08-07 15:27 | Outpatient (BNV) | payer MEDICARE, SELFPAY | PROVIDERS: PCP Physician Assistant; Visit Provider Radiology Diagnostic Radiology | DX: R00.2 Palpitations (principal); R03.0 Elevated blood-pressure reading, without diagnosis of hypertension | CPT/HCPCS: 71046; 93880 ==

== ENCOUNTER 2025-08-12 14:47 | Outpatient (AMB) | payer MEDICARE, SELFPAY ==
--- NOTE | 2025-08-12 15:03 | MHC.PC.OV ---
Vital Signs 08/12/25 15:04 Height 5 ft 10 in Weight 166 lb 2 oz BMI 23.8 BP 132/80 Blood Pressure Location Rt brachial Position Sitting Respiration 14 Pulse 67 Pulse Source Pulse Oximeter Pulse Oximetry (%) 98 Oxygen Delivery Method Room Air Intake Visit Reasons: htn Intake Note: Follow up htn Allergies Seasonal Allergies Allergy (Mild, Verified 08/12/25 15:07) Fever Medication List - Last Reconciled 08/12/25 by Romy Vásquez PA-C aspirin 81 mg PO DAILY fexofenadine-pseudoephedrine 60-120 mg ER (Divya-D 12 Hour) 1 tab PO Q12H PRN metoprolol succinate ER 25 mg PO DAILY simvastatin 20 mg PO DAILY Tobacco use date assessed: 07/09/25 Fall risk assessment: No Falls in past year Last assessed Fall Risk: 08/12/25 Dental Screening Dental Screen Date: 06/18/25 HPI htn HPI Details Pt is a 64 y/o male who presents today for a follow up. CV: bp today is 132/80. He had an abnormal stress test but had a reassuring cardiac catheterization without any signs of blockages. His echo was normal. He did have a Holter that was also reassuring but is still getting palpitations regularly and feeling sick with them. He is taking the metoprolol and does feel it has cut down a little bit on the changes in his heart but he is still symptomatic and getting short of breath with it. He also gets short of breath with exertion. He states that it is mostly with climbing up stairs or up a ladder at a job site. Walking around if he can control the pace seems to be okay. Derm: Booked with Dermatology Colonoscopy: 2017, had polpys. overdue. booked 09.03.25. 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 Current occupational exposures/hazards: No Cognitive needs: No Hearing needs: No Vision needs: Yes (glasses.) Questionnaire Thrive Questionnaire Date Thrive assessed: 06/16/25 I am a: Patient What is your living situation today?: I have a steady place to live Within the past 12 months, did the food you bought not last and you didn't have the money to get more?: Never true Within the past 12 months, did you worry whether your food would run out before you got money to buy more?: Never true Do you have trouble paying for medicines?: No Do you have trouble getting transportation to medical appointments?: No Do you have trouble paying your heating and electricity bill?: No Do you have trouble taking care of your child, family member or friend?: No Do you have trouble with day-to-day activities such as bathing, preparing meals, shopping, managing finances, etc.?: No Are you currently unemployed and looking for a job?: No Are you interested in more education?: No Please select the resources that you would like help with: None Currently or been in a relationship where the following occur: No concerns reported THRIVE Score: 0 Physical exam (Primary Care) Vital Signs: Last Vital Signs Pulse 67 08/12/25 15:04 Resp 14 08/12/25 15:04 BP 132/80 08/12/25 15:04 Pulse Ox 98 08/12/25 15:04 Oxygen Delivery Method Room Air 08/12/25 15:04 BMI result Body Mass Index 23.8 Tobacco/Smoking Status: Tobacco use Status Tobacco use date assessed 07/09/25 08/12/25 15:10 Patient Tobacco Use Status Former Tobacco user 08/12/25 15:10 Tobacco use type Cigar 08/12/25 15:10 e-Cigarette/Vaping Use Never Used 08/12/25 15:10 Thrive Assessment: Date of Thrive Assessment Date Thrive assessed 06/16/25 08/12/25 15:10 Currently or been in a relationship where the following occur: No concerns reported Const Orientation/consciousness: patient oriented x3 HENMT Ears: hearing grossly normal bilaterally Neck Thyroid: Thyroid normal Lymphatic: no lymphadenopathy noted Resp Auscultation: clear to auscultation bilaterally Cardio Rate: regular rate Rhythm: regular rhythm Heart sounds: S1 normal heart sound present and S2 normal heart sound present GI Inspection: Yes normal to inspection Palpation (GI): Soft to palpation and Other GI palpation findings present (nontender, no cva tenderness) Auscultation: normoactive bowel sounds Rectal Exam - Male: Yes deferred Skin General skin exam: no rashes or lesions noted Neuro General: patient oriented x3, gait normal and no focal motor deficits Coding Level of Care Code Est Pt Level 4 (53607) Complex EM visit Add On G2211 Diagnoses Chest pain R07.9 SOB (shortness of breath) R06.02 HTN (hypertension) I10 Assessment & Plan Assessment & Plan (1) Chest pain: Code(s): R07.9 - Chest pain, unspecified Category: Medical Plan: Continue follow up with Cardiology. Discussed the possible need for a longer monitor. (2) SOB (shortness of breath): Code(s): R06.02 - Shortness of breath Category: Medical Plan: Referral to pulmonology. Pulmonary function testing ordered. Chest CT ordered as the symptoms are persistent (3) HTN (hypertension): Code(s): I10 - Essential (primary) hypertension Category: Medical Plan: WNL. Continue metoprolol Orders: Orders CT chest wo IV con 08/12/25 I10 - Essential (primary) hypertension, R06.02 - Shortness of breath, R07.9 - Chest pain, unspecified PFT pulmonary function test 08/12/25 I10 - Essential (primary) hypertension, R06.02 - Shortness of breath, R07.9 - Chest pain, unspecified Referrals Pulmonology Referral I10 - Essential (primary) hypertension, R06.02 - Shortness of breath, R07.9 - Chest pain, unspecified
[2025-08-12 15:04] VITALS: BP 132/80; PULSE 67; RESP 14; O2SAT 98; BMI 23.8
== END 2025-08-12 15:34 | disposition home or self-care (01) ==
LOC: HO.HMCFM 14:48
PROVIDERS: PCP Physician Assistant; Visit Provider Physician Assistant
DX: R07.9 Chest pain, unspecified (principal); R06.02 Shortness of breath; I10 Essential (primary) hypertension

== ENCOUNTER → 2025-08-12 14:47 | Outpatient (BNVA) | payer MEDICARE, SELFPAY | PROVIDERS: PCP Physician Assistant; Visit Provider Physician Assistant | DX: I10 Essential (primary) hypertension (principal); R06.02 Shortness of breath; R07.9 Chest pain, unspecified | CPT/HCPCS: 99212 ==

== ENCOUNTER 2025-08-21 15:06 | Outpatient (AMB) | payer MEDICARE, SELFPAY ==
--- NOTE | 2025-08-21 15:09 | A.OFFVIS_ITS ---
Vital Signs 08/21/25 15:10 Height 5 ft 10 in Weight 167 lb 8.821 oz BMI 24.0 BP 124/62 Blood Pressure Location Lt brachial Position Sitting Pulse 60 Pulse Source Pulse Oximeter Intake Visit Reasons: 2 wk s/p cath ck HS Accompanied by: Self / Same As Patient Allergies Seasonal Allergies Allergy (Mild, Verified 08/21/25 15:13) Fever Medication List - Last Reconciled 08/21/25 by Rayray Martell NP aspirin 81 mg PO DAILY fexofenadine-pseudoephedrine 60-120 mg ER (Divya-D 12 Hour) 1 tab PO Q12H PRN metoprolol succinate ER 25 mg PO DAILY simvastatin 20 mg PO DAILY HPI Comments Details: This is a 64-year-old male patient coming in for a follow-up visit status post cardiac catheterization. Patient with reports of chest pain, shortness breath, palpitations and underwent a treadmill stress test which was abnormal and subsequently underwent cardiac catheterization with Dr. Campbell on 08/06/2025. Today, patient is reporting ongoing symptoms of chest discomfort and shortness of breath with exertion. Patient states that the shortness of breath this more concerning for the patient as sometimes he notices this even at rest and was also recently seen by PCP was woken up for pulmonary pathology and is referred out to pulmonology. Patient also reports palpitations for which patient had undergone a 24 hour Holter study that showed PACs but states that the usual intensity and frequency of palpitations he did not have during the 24 hour period. Patient states that the palpitations sometimes can wake him up at night. Patient is otherwise denying any dizziness, orthopnea, PND, leg edema, presyncope or syncope. Patient does note that since being on the metoprolol, patient's symptoms have improved very mild sleep. Patient was a former smoker with cigarettes and cigars and is no longer smoking at this time. 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 Current occupational exposures/hazards: No Cognitive needs: No Hearing needs: No Vision needs: Yes (glasses.) Review of Systems Const Denies daytime sleepiness, Denies difficulty sleeping, Denies snoring, Denies stops breathing during sleep and Denies weakness Card Denies chest pain, Denies rapid heart rate, Denies irregular heart rhythm, Den ies claudication, Denies leg edema, Denies lightheadedness, Denies palpitations, Denies dyspnea, Denies dyspnea on exertion, Denies orthopnea, Denies paroxysmal nocturnal dyspnea and Denies slow heart rate Resp Denies cough, Denies dyspnea, Denies dyspnea on exertion and Denies snoring GI Reports no additional complaints, Denies hematochezia, Denies change in stool character and Denies dyspepsia Musc Denies abnormal gait, Denies muscle weakness and Denies numbness Neuro Denies abnormal gait, Denies numbness and Denies weakness Endo Denies palpitations Physical Exam Vital Signs: Last Vital Signs Pulse 60 08/21/25 15:10 BP 124/62 08/21/25 15:10 BMI result Body Mass Index 24.0 Const General: cooperative, healthy appearing, comfortable and no acute distress Orientation/consciousness: patient oriented x3 HEENT Head: Yes normal to inspection Neck Neck: Yes normal visual inspection, Yes trachea midline and Yes supple Chest Chest palpation & inspection: normal inspection of the chest Resp Effort & Inspection: normal respiratory effort Auscultation: clear to auscultation bilaterally, no crackles, no rales, no rhonchi and no wheezes Cardio Jugular venous distension: no JVD Palpation: normal PMI Rate: regular rate Rhythm: regular rhythm Heart sounds: S1 normal heart sound present, S2 normal heart sound present, no click, no gallops, no murmurs and no rubs Peripheral pulses: Peripheral pulses 2+ throughout GI Inspection: Yes normal to inspection Palpation (GI): Soft to palpation Auscultation: normal bowel sounds Skin General skin exam: no rashes or lesions noted Neuro General: patient oriented x3 Extrem General: Yes normal to inspection, No no pedal edema and No calf tenderness Psych Appearance: grossly normal Mental Status: mental status grossly normal Speech and movement: Normal speech and movement present Assessment & Plan Assessment & Plan (1) S/P cardiac cath: Code(s): Z98.890 - Other specified postprocedural states Category: Surgical Plan: 08/06/2025-patient underwent cardiac catheterization with Dr. Campbell at [facility] that showed no significant coronary artery disease. Right wrist catheterization site is well healed. Given his ongoing symptoms of chest discomfort and more so shortness of breath with exertion as well as at rest. PCP has ordered a pulmonary function test and is referred out to pulmonology. For ongoing symptoms of palpitations, we will do a longer Holter study for at least 14 days. Advised on avoiding stimulants or caffeinated beverages. Continue with refraining from alcohol and tobacco intake. Further management based on findings. (2) Chest pain: Code(s): R07.9 - Chest pain, unspecified Category: Medical Plan: As above. (3) Heart palpitations: Code(s): R00.2 - Palpitations Category: Medical Plan: As above. (4) SOB (shortness of breath): Code(s): R06.02 - Shortness of breath Category: Medical Plan: As above. (5) HTN (hypertension): Code(s): I10 - Essential (primary) hypertension Category: Medical Plan: Blood pressure is well-controlled. Continue current regimen with a blood pressure goal less than 130/80. Advised monitoring blood pressures at home. Advised on heart healthy diet, regular exercise, adequate hydration, avoiding stimulants, med compliance, and management of vascular risk factors. Follow up after Holter study. In the interim, patient will call the office with any concerns or change in symptoms. Advised to seek ER care in case of exertional chest pain not resolved with rest. This note was generated using voice recognition software. While every effort has been made to ensure accuracy and proper drier transfer car operator, there may be occasional errors that could affect the content or meaning of the described symptoms. Orders: Orders ECG 14 day holter monitor Today R00.2 - Palpitations Coding Level of Care Code Est Pt Level 4 (56970) Complex EM visit Add On G2211 Diagnoses S/P cardiac cath Z98.890 Chest pain R07.9 Heart palpitations R00.2 SOB (shortness of breath) R06.02 HTN (hypertension) I10 Time Spent (min) 32 Comment Time spent in reviewing the chart, test results, assessment, counseling and documentation.
[2025-08-21 15:10] VITALS: BP 124/62; PULSE 60; BMI 24.0
--- OUTSIDE RECORDS SUMMARY | 2025-08-21 16:45 | XMS_ITS | Clinical Summary ---
Author Organization [address] [facility] Address [address] [place] [address] Phone Care Team Providers Care Retail Team Leader Name Role Phone Romy Vásquez Primary Care Provider [phone] Allergies No known active allergies Medications fexofenadine-ps eudoephedrine (ROBERTO-D) 60-120 mg per 12 hr tablet Take 1 tablet by mouth 2 (two) times a day. Do not crush, chew, or split. Active polyethylene glycol (Golytely) 236-22.74-6.74 -5.86 gram solution Take 4L by mouth once for one dose. May substitue any PEG. Starting at 2PM the day before your procedure drink 1 8oz glasses at your own pace until you complete half of the gallon. Finish 2nd half of the gallon at 8PM. 4000 mL 5 Active bisacodyL (DULCOLAX) 5 mg EC tablet Take 2 tablets by mouth right before beginning bowel prep. See instructions provided by the office 2 tablet 5 Active Encounters Date Type Department Care Team Description 06/19/2025 Telephone Gastroenterology - [place] [address] [place] [id number] Cristine Newman MD from Last 3 Months Social History Tobacco Use Types Packs/Day Years Used Date Smoking Tobacco: Never Assessed Sex and Gender Information Value Date Recorded Sex Assigned at Not on file Legal Sex Male 7:26 AM EST Gender Identity Not on file Sexual Orientation Not on file Plan of Treatment Upcoming Encounters Date Type Department Care Team ([facility] st Contact Info) Description 09/03/2025 11:00 AM EST Appointment [facility] Endoscopy [address] [place] [address] Cristine Newman MD [address] [facility] [address] [place] [address] Health Maintenance Due Date Last Done Comments [...] on patient's age to complete this topic Goals Goal Patient Goal Type Associated Problems Recent Progress Patient-Stated? Author Autogenerat ed Goal Care Plan Autogenerated Problem No Nicolás Brown Additional Health Concerns Active Problems Noted Date Diagnosed Date Autogenerated Problem 08/05/[address] [facility] [place] [address] [employer] - [place] MEDICARE ADVANTAGE Care Teams Retail Team Leader Relationship Specialty Start Date End Date Romy Vásquez PA [address] [place] [address] PCP - General Physician Assistant Grocery Store Manager 06/19/25
== END 2025-08-21 15:39 | disposition home or self-care (01) ==
LOC: HO.HCS 15:07
PROVIDERS: PCP Physician Assistant
DX: Z98.890 Other specified postprocedural states (principal); R07.9 Chest pain, unspecified; R00.2 Palpitations; R06.02 Shortness of breath; I10 Essential (primary) hypertension
CPT/HCPCS: 99214; G2211

== ENCOUNTER → 2025-08-21 15:06 | Outpatient (BNVA) | payer MEDICARE, SELFPAY | PROVIDERS: PCP Physician Assistant | DX: I10 Essential (primary) hypertension (principal); R06.02 Shortness of breath; R00.2 Palpitations; R07.9 Chest pain, unspecified; Z98.890 Other specified postprocedural states | CPT/HCPCS: 99212 ==

== ENCOUNTER → 2025-08-25 11:25 | Outpatient (REF) | payer MEDICARE, SELFPAY ==
--- NOTE | 2025-08-25 11:31 | HM_ITS ---
* Total monitoring time 14 days. * Underlying rhythm is sinus with an average rate of 75/Min. * Rare supraventricular ectopy. * Rare ventricular ectopy. * No significant pauses or high-grade AV blocks. * Shortness of breath, palpitations, pain, spasm, dizziness in patient diary associated with sinus rhythm, sinus tachycardia, supraventricular and ventricular ectopy. MTDD
== END ==
LOC: HO.CARD 11:25
PROVIDERS: PCP Physician Assistant
DX: R00.2 Palpitations (principal)
CPT/HCPCS: 93246

== ENCOUNTER → 2025-08-25 11:31 | Outpatient (BNV) | payer MEDICARE, SELFPAY | PROVIDERS: PCP Physician Assistant; Visit Provider Internal Medicine | DX: I49.3 Ventricular premature depolarization (principal); I49.49 Other premature depolarization | CPT/HCPCS: 93248 ==

== ENCOUNTER 2025-09-23 14:12 | Outpatient (AMB) | payer MEDICARE, SELFPAY ==
[2025-09-23 14:14] VITALS: BP 130/64; PULSE 67; BMI 23.9
--- NOTE | 2025-09-23 14:14 | A.OFFVIS_ITS ---
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 Patient with a history of hypertension who has been seen in our office for ongoing re ports of shortness of breath, chest pain, and palpitations who has undergone a stress test that was abnormal and subsequently underwent a cardiac catheterization on 08/06/2025 that revealed no significant coronary artery disease. Given his ongoing symptoms, patient underwent a Holter study and is planned for a pulmonary workup by PCP. Patient states that he has been having the symptoms however he does feel like the intensity and frequency have reduced significantly on the metoprolol therapy. 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 Current occupational exposures/hazards: No Cognitive needs: No Hearing needs: No Vision needs: Yes (glasses.) Review of Systems Const Denies daytime sleepiness, Denies difficulty sleeping, Denies snoring, Denies stops breathing during sleep and Denies weakness Card Denies chest pain, Denies rapid heart rate, Denies irregular heart rhythm, Denies claudication, Denies leg edema, Denies lightheadedness, Reports palpitations, Denies dyspnea, Denies dyspnea on exertion, Denies orthopnea, Denies paroxysmal nocturnal dyspnea and Denies slow heart rate Resp Denies cough, Denies dyspnea, Denies dyspnea on exertion and Denies snoring GI Reports no additional complaints, Denies hematochezia, Denies change in stool character and Denies dyspepsia Musc Denies abnormal gait, Denies muscle weakness and Denies numbness Neuro Denies abnormal gait, Denies numbness and Denies weakness Endo Reports palpitations Physical Exam Vital Signs: Last Vital Signs Pulse 67 09/23/25 14:14 BP 130/64 09/23/25 14:14 BMI result Body Mass Index 23.9 Const General: cooperative, healthy appearing, comfortable and no acute distress Orientation/consciousness: patient oriented x3 HEENT Head: Yes normal to inspection Neck Neck: Yes normal visual inspection, Yes trachea midline and Yes supple Chest Chest palpation & inspection: normal inspection of the chest Resp Effort & Inspection: normal respiratory effort Auscultation: clear to auscultation bilaterally, no crackles, no rales, no rhonchi and no wheezes Cardio Jugular venous distension: no JVD Palpation: normal PMI Rate: regular rate Rhythm: regular rhythm Heart sounds: S1 normal heart sound present, S2 normal heart sound present, no click, no gallops, no murmurs and no rubs Peripheral pulses: Peripheral pulses 2+ throughout GI Inspection: Yes normal to inspection Palpation (GI): Soft to palpation Auscultation: normal bowel sounds Skin General skin exam: no rashes or lesions noted Neuro General: patient oriented x3 Extrem General: Yes normal to inspection, No no pedal edema and No calf tenderness Psych Appearance: grossly normal Mental Status: mental status grossly normal Speech and movement: Normal speech and movement present Assessment & Plan Assessment & Plan (1) Heart palpitations: Code(s): R00.2 - Palpitations Category: Medical (2) SOB (shortness of breath): Code(s): R06.02 - Shortness of breath Category: Medical (3) HTN (hypertension): Code(s): I10 - Essential (primary) hypertension Category: Medical Plan 07/27/2025-patient underwent a stress test with ischemic changes noted in his EKG. 08/06/2025-patient underwent cardiac catheterization with Dr. Campbell at [facility] that showed no significant coronary artery disease. Patient had reported ongoing symptoms of shortness of breath for which patient is working up with PCP for pulmonic etiology and has been referred out to pulmonology. Given his report of ongoing palpitations, patient underwent a Holter study on 08/25/2025 that showed underlying normal sinus rhythm with the average heart rate of 75 beats per minute, with rare PACs and PVCs, and brief episodes of SVT. Patient does note that on the metoprolol therapy his symptoms have improved however given his ongoing symptoms we discussed about titrating this. Even though brief runs, we also discussed EP evaluation if needed for SVT ablation however given his reported symptoms with different rhythms and a Holter, difficult to assess if his symptoms are truly with just SVT. At this time patient would like to stay on the current dose of metoprolol and watch his symptoms. Blood pressure is well-controlled. Continue current regimen with a blood pressure goal less than 130/80. Advised monitoring blood pressures at home. Advised patient to regular exercise, heart healthy diet, avoiding caffeinated beverages, stress mitigation strategies, adequate hydration, and med compliance. Follow up in 6 months. In the interim, patient will call the office with any concerns or change in symptoms. This note was generated using voice recognition software. While every effort has been made to ensure accuracy and proper vp clinical research, there may be occasional errors that could affect the content or meaning of the described symptoms. Coding Level of Care Code Est Pt Level 4 (79963) Complex visit Add On G2211 Diagnoses Heart palpitations R00.2 SOB (shortness of breath) R06.02 HTN (hypertension) I10 Time Spent (min) 31 Comment Time spent in reviewing the chart, test results, assessment, counseling and documentation.
== END 2025-09-23 14:39 | disposition home or self-care (01) ==
LOC: HO.HCS 14:13
PROVIDERS: PCP Physician Assistant
DX: R00.2 Palpitations (principal); R06.02 Shortness of breath; I10 Essential (primary) hypertension
CPT/HCPCS: 99214; G2211

== ENCOUNTER → 2025-09-23 14:12 | Outpatient (BNVA) | payer MEDICARE, SELFPAY | PROVIDERS: PCP Physician Assistant | DX: I10 Essential (primary) hypertension (principal); R00.2 Palpitations; R06.02 Shortness of breath; Z79.899 Other long term (current) drug therapy | CPT/HCPCS: 99212 ==

== ENCOUNTER 2025-10-28 12:42 | Outpatient (REF) | payer MEDICARE, SELFPAY ==
--- NOTE | 2025-10-28 12:54 | PFT_ITS ---
Flows: FEV1: 107 % of predicted at 3.57 L FVC: 110 % of predicted at 4.78 L FEV1/FVC: 75 % Bronchodilator response: Absent Volumes: Total lung capacity: 93 % of predicted at 6.69 L Residual volume: 80 % of predicted at 1.94 L Slow vital capacity: 100 % of predicted at 4.75 L Expiratory reserve volume: 124 % of predicted at 1.57 L Diffusion capacity: Normal Impression: No obstructive or restrictive ventilatory defect. No bronchodilator response. Essentially normal pulmonary function test. MTDD
[2025-10-28 13:33] VITALS: PULSE 61
--- OUTSIDE RECORDS SUMMARY | 2025-10-28 14:18 | XMS_ITS | Encounter Summary ---
Author Organization [facility] Address [address] [place] [address] Care Team Providers Care Daycare Worker Name Role Phone Romy Vásquez Primary Care Provider [phone] Encounter Details Date Type Department Care Team ([facility] Contact Info) Description 10/12/2025 Results Follow-Up Gastroenterology - [place] 175 [facility] 175 [facility] [address] [place] [id number] Cristine Newman MD [address] [facility] [address] [place] [address] Social History Tobacco Use Types Packs/Day Years Used Date Smoking Tobacco: Never Smokeless Tobacco: Never Alcohol Use Standard Drinks/Week Comments Yes 21 (1 standard drink = 0.6 oz pu re alcohol) Interpersonal Safety Answer Date Record ed Physical Abuse Unrecognized value 09/03/2025 Verbal Abuse Unrecognized value 09/03/2025 Sex and Gender Information Value Date Recorded Sex Assigned at Not on file Legal Sex Male 7:26 AM EST Gender Identity Not on file Sexual Orientation Not on file documented as of this encounter Progress Notes * Cristine Newman MD - 10/12/2025 8:50 PM EST The polyp(s) that were removed during your colonoscopy were precancerous, but benign. Fortunately, we removed them and therefore, they will not cause any more problems in the future. Based on the number, the size, and the features of the polyp(s) removed, I recommend a follow-up colonoscopy in 5 years. Before, the five years are due, we will send you a reminder in the mail askingyou to contact our office to have the colonoscopy scheduled. I would like to personally thank you for allowing us to take care of you. Please don't hesitate to call us for any questions or concerns. Regards, Cesar Newman MD Board Certified Gastroenterology and Internal Medicine Transplant Hepatology [facility] documented in this encounter Plan of Treatment Not on file documented as of this encounter Goals Goal Patient Goal Type Associated Problems Recent Progress Patient-Stated? Author Autogenerat ed Goal Care Plan Autogenerated Problem No Nicolás Brown documented as of this encounter Visit Diagnoses Not on filedocumented in this encounter Additional Health Concerns Active Problems Noted Date Diagnosed Date Autogenerated Problem 08/05/2025 documented as of this encounter Care Teams Daycare Worker Relationship Specialty Start Date End Date Romy Vásquez PA [address] [place] [address] PCP - General Physician Laundry Folder 06/19/25 documented as of this encounter
--- OUTSIDE RECORDS SUMMARY | 2025-10-28 14:18 | XMS_ITS | Clinical Summary ---
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 5 Active simvastatin (ZOCOR) 20 mg tablet Take 1 tablet (20 mg total) by mouth 1 (one) time each day. 5 Active aspirin 81 mg EC tablet Take 1 tablet (81 mg total) by mouth 1 (one) time each day. 5 Active Encounters Date Type Department Care Team Description 10/12/2025 Results Follow-Up Gastroenterology - [place] [address] [address] [facility] [address] [place] [address] Cristine Newman MD 09/03/2025 12:32 PM EST Anesthesia Event [facility] Endoscopy [address] [place] [address] Debbi AbhijitDO 09/03/2025 9:58 AM EST - 09/03/2025 11:59 PM EST Hospital Encounter [facility] Endoscopy [address] [place] [address] Cristine Newman MD Steele, Matthew G, CRNA Hx of colonic polyps Discharge Disposition: Home or Self Care from Last 3 Months Surgical History Surgery Date Site/Laterality Comments CV LEFT HEART CATHETERIZATION N/A Medical History Medical History Date Comments Hyperlipidemia Hypertension Social History Tobacco Use Types Packs/Day Years Used Date Smoking Tobacco: Never Smokeless Tobacco: Never Tobacco Cessation:Counseling Given: Not Answered Alcohol Use Standard Drinks/Week Comments Yes 21 (1 standard drink = 0.6 oz pu re alcohol) Interpersonal Safety Answer Date Record ed Physical Abuse Unrecognized value 09/03/2025 Verbal Abuse Unrecognized value 09/03/2025 Sex and Gender Information Value Date Recorded Sex Assigned at Not on file Legal Sex Male 7:26 AM EST Gender Identity Not on file Sexual Orientation Not on file Last Filed Vital Signs Vital Sign Reading Time Taken Comments Blood Pressure 119/83 09/03/2025 12:57 PM EST Pulse 73 09/03/2025 12:57 PM EST Temperature 36.3 C (97.4 F) 09/03/2025 12:37 PM EST Respiratory Rate 21 09/03/2025 12:57 PM EST Oxygen Saturation 100% 09/03/2025 12:57 PM EST Inhaled Oxygen Concentration - - Weight 74.8 kg (165 lb) 09/03/2025 10:34 AM EST Height 177.8 cm (5' 10 ) 09/03/2025 10:34 AM EST Body Mass Index 23.68 09/03/2025 10:34 AM EST Plan of Treatment Health Maintenance Due Date Last Done Comments DTaP,Tdap,and Td Vaccines (1 - Tdap) 1977 Pneumococcal Vaccine: 50+ Years (1 of 1 - PCV) 2008 Zoster Vaccines (1 of 2) 2008 Depression Screening 10/29/2024 Cholesterol Screening (Lipid Panel) 06/19/2025 Hepatitis C Screening 06/19/2025 Medicare Annual Wellness Visit 06/19/2025 Social Influencers of Health Screening 06/19/2025 COVID-19 Vaccine (3 - 2024-2 6 season) 2025 03/08/2021, 02/15/2021 Influenza Vaccine (#1) 2025 Falls Risk Assessment 09/03/2026 09/03/2025 Colorectal Cancer Screening: Colonoscopy 09/03/2030 09/03/2025 RSV Immunization Adult Patients (1 - 1-dose 75+ series) 2033 HIB [...] to complete this topic RSV Immunization Patients Under 20 months Aged Out No longer eligible b ased on patient's age to complete this topic Varicella Vaccines Aged Out No longer eligible based on patient's age to complete this topic Goals Goal Patient Goal Type Associated Problems Recent Progress Patient-Stated? Author Autogenerat ed Goal Care Plan Autogenerated Problem No Nicolás Brown Procedures Procedure Name Priority Date/Time Associated Diagnosis Comments COLONOSCOPY Routine 09/03/2025 12:36 PM EST Hx of colonic polyps TISSUE EXAM Routine 09/03/2025 12:22 PM EST Hx of colonic polyps from Last 3 Months Results * COLONOSCOPY Anesthesia - MAC; [facility] ENDOSCOPY (09/03/2025 12:36 PM EST) Anatomical Region Laterality Modality Endoscopy 09/03/2025 12:1 0 PM EST Impressions 09/03/2025 12:37 PM EST - Four 3 to 8 mm polyps in the rectum, in the transverse colon and in the cecum, removed with a cold snare. Resected and retrieved. - Diverticulosis in the entire examined colon. - Internal hemorrhoids. Recommendation: - Await pathology results. - Repeat colonoscopy in 5 years for surveillance. Narrative 09/03/2025 12:37 PM EST [facility] GI Patient Name: Gavin Zaidi Procedure Date: 09/03/2025 12:10 PM Date of : 1960 Age: 64 Gender: Male Note Status: Finalized Attending MD: Cristine Newman MD, Procedure Date No Time: 09/03/2025 Procedure: Colonoscopy Indications: Screening for colorectal malignant neoplasm Providers: Cristine Newman MD Referring MD: Cristine Newman MD Medicines: Monitored Anesthesia Care Complications: No immediate complications. Estimated blood loss: Minimal. Estimated Blood Loss: Estimated blood loss was minimal. Procedure: Pre-Anesthesia Assessment: - Prior to the procedure, a History and Physical was performed, and patient medications and allergies were reviewed. The patient is competent. The risks and benefits of the procedure and the sedation options and risks were discussed with the patient. All questions were answered and informed consent was obtained. Patient identification and proposed procedure were verified by the physician, the nurse, the sample weaver and the blood bank technician in the pre-procedure area in the endoscopy suite. Mental Status Examination: alert and oriented. Airway Examination: normal oropharyngeal airway and neck mobility. Respiratory Examination: clear to auscultation. CV Examination: normal. Prophylactic Antibiotics: The patient does not require prophylactic antibiotics. Prior Anticoagulants: The patient has taken no anticoagulant or antiplatelet agents. ASA Grade Assessment: II - A patient with mild systemic disease. After reviewing the risks and benefits, the patient was deemed in satisfactory condition to undergo the procedure. The anesthesia plan was to use monitored anesthesia care (MAC). Immediately prior to administration of medications, the patient was re-assessed for adequacy to receive sedatives. The heart rate, respiratory rate, oxygen saturations, blood pressure, adequacy of pulmonary ventilation, and response to care were monitored throughout the procedure. The physical status of the patient was re-assessed after the procedure. After I obtained informed consent, the scope was passed under direct vision. Throughout the procedure, the patient's blood pressure, pulse, and oxygen saturations were monitored continuously. The Colonoscope was introduced through the anus and advanced to the cecum, identified by appendiceal orifice and ileocecal valve. The colonoscopy was performed without difficulty. The patient tolerated the procedure well. The quality of the bowel preparation was good. Findings: The perianal and digital rectal examinations were normal. Four sessile polyps were found in the rectum, transverse colon and cecum. The polyps were 3 to 8 mm in size. These polyps were removed with a cold snare. Resection and retrieval were complete. Estimated blood loss was minimal. Many small and large-mouthed diverticula were found in the entire colon. Internal hemorrhoids were found during retroflexion. The hemorrhoids were Grade II (internal hemorrhoids that prolapse but reduce spontaneously). Procedure Code(s): --- Professional --- 84072, Colonoscopy, flexible; with removal of tumor(s), polyp(s), or other lesion(s) by snare technique Diagnosis Code(s): --- Professional --- D12.8, Benign neoplasm of rectum D12.3, Benign neoplasm of transverse colon (hepatic flexure or splenic flexure) D12.0, Benign neoplasm of cecum CPT copyright 2021 [employer]. All rights reserved. The codes documented in this report are preliminary and upon jig builder helper review may be revised to meet current compliance requirements. Cristine Newman MD 09/03/2025 12:37:50 PM This report has been signed electronically.Cristine Newman MD Number of Addenda: 0 Note Initiated On: 09/03/2025 12:10 PM Scope Withdrawal Time: 0 hours 15 minutes 51 seconds Scope In: Scope Out: 12:36:05 PM Endoscopy Department at [facility] - [address] [place] [id number] Procedure Note Cristine Newman MD - 09/03/2025 [facility] GI Patient Name: Gavin Zaidi Procedure Date: 09/03/2025 12:10 PM Date of : 1960 Age: 64 Gender: Male Note Status: Finalized Attending MD: Cristine Newman MD, Procedure Date No Time: 09/03/2025 Procedure: Colonoscopy Indications: Screening for colorectal malignant neoplasm Providers: Cristine Newman MD Referring MD: Cristine Newman MD Medicines: Monitored Anesthesia Care Complications: No immediate complications. Estimated blood loss: Minimal. Estimated Blood Loss: Estimated blood loss was minimal. Procedure: Pre-Anesthesia Assessment: - Prior to the procedure, a History and Physicalwas performed, and patient medications and allergieswere reviewed. The patient is competent. The risks and benefits of the procedure and the sedation optionsand risks were discussed with the patient. Allquestions were answered and informed consent was obtained. Patient identification and proposed procedure were verified by the physician, the nurse, theanesthetist and the blood bank technician in the pre-procedure area in the endoscopy suite. Mental Status Examination: alertand oriented. Airway Examination: normal oropharyngeal airway and neck mobility. Respiratory Examination: clear to auscultation. CV Examination: normal. Prophylactic Antibiotics: The patient does notrequire prophylactic antibiotics. Prior Anticoagulants: The patient has taken no anticoagulant or antiplatelet agents. ASA Grade Assessment: II - A patient withmild systemic disease. After reviewing the risks and benefits, the patient was deemed in satisfactory condition to undergo the procedure. The anesthesia plan was to use monitored anesthesia care (MAC). Immediately prior to administration of medications, the patient was re-assessed for adequacy to receive sedatives. The heart rate, respiratory rate, oxygen saturations, blood pressure, adequacy of pulmonary ventilation, and response to care were monitored throughout the procedure. The physical status ofthe patient was re-assessed after the procedure. After I obtained informed consent, the scope was passed under direct vision. Throughout theprocedure, the patient's blood pressure, pulse, and oxygen saturations were monitored continuously. The Colonoscope was introduced through the anus and advanced to the cecum, identified by appendiceal orifice and ileocecal valve. The colonoscopy was performed without difficulty. The patient tolerated the procedure well. The quality of the bowel preparation was good. Findings: The perianal and digital rectal examinations were normal. Four sessile polyps were found in the rectum, transverse colon and cecum. The polyps were 3 to 8mm in size. These polyps were removed with a coldsnare. Resection and retrieval were complete. Estimatedblood loss was minimal. Many small and large-mouthed diverticula were foundin the entire colon. Internal hemorrhoids were found duringretroflexion. The hemorrhoids were Grade II (internal hemorrhoids that prolapse but reduce spontaneously). Procedure Code(s): --- Professional --- 31973, Colonoscopy, flexible; with removal of tumor(s), polyp(s), or other lesion(s) by snare technique Diagnosis Code(s): --- Professional --- D12.8, Benign neoplasm of rectum D12.3, Benign neoplasm of transverse colon (hepatic flexure or splenic flexure) D12.0, Benign neoplasm of cecum CPT copyright 2020 [employer]. All rights reserved. The codes documented in this report are preliminary and upon jig builder helper reviewmay be revised to meet current compliance requirements. Cristine Newman MD 09/03/2025 12:37:50 PM This report has been signed electronically.Cristine Newman MD Number of Addenda: 0 Note Initiated On: 09/03/2025 12:10 PM Scope Withdrawal Time: 0 hours 15 minutes 51 seconds Scope In: Scope Out: 12:36:05 PM Endoscopy Department at [facility] - [address] [place] [id number] IMPRESSION: - Four 3 to 8 mm polyps in the rectum, in the transverse colon and in the cecum, removed with acold snare. Resected and retrieved. - Diverticulosis in the entire examined colon. - Internal hemorrhoids. Recommendation: - Await pathology results. - Repeat colonoscopy in 5 years for surveillance. us Cristine Newman MD GI~PROCEDURE ORDERABLES Fin al Result * Tissue exam (09/03/2025 12:22 PM EST) Final Diagnosis A. Large Intestine, Cecum, polyps x2: - Tubular adenoma. B. Large Intestine, Transverse Colon, polyp x1: - Hyperplastic polyp. C. Large Intestine, Rectum, polyp x1: - Tubular adenoma. 09/04/2025 8:24 AM EST [facility] ([facility]) [facility] at 0824 EST Gross Description A. Large Intestine, Cecum, polyp x 2: Labeled colon cecum polyp x 2 . Received in formalin are three irregular lin mucosal tissue fragments, each measuring approximately 0.3 cm in greatest dimension, which are wrapped in paper and submitted in toto in one cassette, three pieces, multiple levels on one side. B. Large Intestine, Transverse Colon, polyp x 1: Labeled trans colon polyp x 1 . Received in formalin is a 0.2 cm in greatest dimension lin-pink mucosal tissue fragment which is wrapped in paper and submitted in toto in one cassette, one piece, multiple levels on one slide. C. Large Intestine, Rectum, polyp x 1: Labeled LI rectum polyp x 1 . Received in formalin is a 0.6 cm in greatest dimension irregular disrupted lin mucosal tissue fragment which is wrapped in paper and submitted in toto in one cassette, one piece, multiple levels on one slide. 09/04/2025 8:24 AM EST [facility] Disclaimer Unless otherwise specified, all tissue is 10% NB formalin fixed and paraffin embedded. 09/04/2025 8:24 AM EST [facility] Tissue Cecum structure / Unknown 09/03/2025 12:22 PM EST 09/03/2025 1:53 PM EST Tissue specimen (specimen) Transverse colon structure / Unknown 09/03/2025 12:29 PM EST 09/03/2025 1:53 PM EST Tissue specimen (specimen) Rectum structure / Unknown 09/03/2025 12:33 PM EST 09/03/2025 1:53 PM EST Cristine Newman MD LAB PATHOLOGY ORDERABLES Fi nal Result [facility] [address] [place] [address], from Last 3 Months Additional Health Concerns Active Problems Noted Date Diagnosed Date Autogenerated Problem 08/05/2025 Insurance BLUE CROSS - [place] MEDICARE AD[place]ANT[place] Care Teams Secondary Art Teacher Relationship Specialty Start Date End Date Romy Vásquez PA [address] [place] [address] PCP - General Physician 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
== END 2025-10-28 12:43 | disposition home or self-care (01) ==
LOC: HO.RESP 12:42
PROVIDERS: PCP Physician Assistant; Visit Provider Physician Assistant
DX: I10 Essential (primary) hypertension (principal); R07.9 Chest pain, unspecified; R06.02 Shortness of breath
CPT/HCPCS: 94060; 94640; 94727; 94729

== ENCOUNTER → 2025-10-28 12:54 | Outpatient (BNV) | payer MEDICARE, SELFPAY | PROVIDERS: PCP Physician Assistant; Visit Provider Internal Medicine Pulmonary Disease | DX: R07.9 Chest pain, unspecified (principal) | CPT/HCPCS: 94060; 94727; 94729 ==